=== PATIENT | female | born 2000 | race Caucasian/White ===

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

== ENCOUNTER 2022-07-10 07:16 | Emergency (ER) | payer MEDICAID ==
[~2022-07-10] VITALS: Ht 175.3 cm; Wt 131.8 kg
[~2022-07-10 07:16] MED LIST changes: -AMOX500C2 PO
[2022-07-10 07:25] VITALS: BP 146/80
== END 2022-07-10 09:31 | disposition home or self-care (01) ==
LOC: ER 07:16
DX: M25.561 Pain in right knee (principal); Z79.899 Other long term (current) drug therapy
CPT/HCPCS: 73564; 99283

== ENCOUNTER 2023-01-06 14:03 | Emergency (ER) | payer MEDICAID ==
[~2023-01-06] VITALS: Ht 175.3 cm; Wt 162.9 kg
[2023-01-06] MEDS ORDERED: TRIA15CR61 TOP (14:54)
[2023-01-06 15:14] VITALS: BP 143/74; PULSE 89; RESP 19; TEMP 98.9; O2SAT 93
--- NOTE | 2023-01-06 15:41 | NUR ---
I have reviewed and agree with all interventions, assessments performed and documented by [employer]
== END 2023-01-06 15:16 | disposition home or self-care (01) ==
LOC: ER 14:04
DX: R21 Rash and other nonspecific skin eruption (principal); L29.9 Pruritus, unspecified; Z79.899 Other long term (current) drug therapy
CPT/HCPCS: 99283

== ENCOUNTER 2025-01-09 05:22 | Emergency (ER) | payer MEDICAID ==
[~2025-01-09] VITALS: Ht 175.3 cm; Wt 145.4 kg
[~2025-01-09 05:22] MED LIST changes: -IBUP-1985 PO; +IBUP600T52 PO
[2025-01-09 05:27] VITALS: TEMP 98.6
--- NOTE | 2025-01-09 05:33 | Physician Documentation ---
History of Present Illness ~ Chief Complaint: Headache Stated Complaint: HEADACHE/SHARP PAINS Time Seen by MD: 05:32 Primary Medical Doctor: [facility] HPI Patient presented to the emergency room for evaluation headache that has been going on for several months however that has gotten worse. Patient has also developed a stutter over the past few months. Medication Reconciliation Allergies: Coded Allergies: No Known Allergies (Unverified , 07/20/09) Scheduled Ibuprofen (Ibuprofen), 1 TAB PO Q8H Selenium Sulfide (Selsun Blue), 1 APPLIC TP DAILY Past Medical History Past Medical History: No Pertinent History Past Surgical History: noncontributory Alcohol Use: None Drug Use: none Lives with: Family Lives In: Home Occupation: child Review of Systems ROS All review of systems negative except as per HPI Physical Exam Vital Signs: Temperature: 98.6, Source: Oral, Heart Rate: 82, Respiratory Rate: 18, BP: 140/90, Pulse Oximetry: 97, Weight: 145.450 Oxygen Flow Rate: 0 Physical Exam General: Patient is awake, alert, oriented x4 in no acute distress. Anxious Head: Normocephalic and atraumatic. Eyes: Conjunctival normal. EOMI. PERRL. ENT: Mucous membranes moist. Neck: Supple, trachea is midline. No meningismus Chest: Clear to auscultation bilaterally without rales, rhonchi, or wheezes. There is no accessory muscle use or retractions. Cardiac: RRR without murmurs, gallops, or rubs. Abd: Soft, nondistended, nontender, with normoactive bowel sounds. No guarding, rebound, or rigidity. Progress Results/Orders Results/Orders Orders - MARCELL LENTZ MD Ct Head (01/09/25 05:59) Completed Orders - MARCELL LENTZ MD Ct Head (01/09/25 05:59) Ibuprofen Tablet (Motrin Tablet) (01/09/25 05:40) Acetaminophen 325mg Tablet (Tylenol Tabl (01/09/25 05:40) Metoclopramide Tablet (Reglan Tablet) (01/09/25 05:40) Vital Signs 01/09/25 01/09/25 01/09/25 01/09/25 06:46 06:48 08:12 09:00 Pulse 74 77 92 Resp 16 16 16 16 B/P (MAP) 128/75 (92) 110/86 (94) 111/92 (98) Pulse Ox 98 96 96 O2 Flow Rate 0 0 0 01/09/25 10:11 Pulse 62 Resp 16 B/P (MAP) 132/90 Pulse Ox 99 Laboratory Tests Test 01/09/25 07:55 White Blood Count 9.6 Red Blood Count 4.80 Hemoglobin 13.0 Hematocrit 39.1 Mean Corpuscular Volume 81.6 Mean Corpuscular Hemoglobin 27.1 Mean Corpuscular Hemoglobin Concent 33.2 Red Cell Distribution Width 14.9 H Platelet Count 366 Mean Platelet Volume 8.7 Neutrophils (%) (Auto) 62.1 Lymphocytes (%) (Auto) 30.8 Monocytes (%) (Auto) 4.6 Eosinophils (%) (Auto) 1.6 Basophils (%) (Auto) 0.9 Neutrophils # (Auto) 6.0 Lymphocytes # (Auto) 3.0 Monocytes # (Auto) 0.4 Eosinophils # (Auto) 0.2 Basophils # (Auto) 0.1 CBC Comment Erythrocyte Sedimentation Rate 25 H Sodium Level 140 Potassium Level 4.0 Chloride Level 106 Carbon Dioxide Level 24.9 Anion Gap 9 Blood Urea Nitrogen 16 Creatinine 0.63 Estimated GFR/1.73 m2 > 90 BUN/Creatinine Ratio 25.4 H Glucose Level 106 H Calcium Level 8.6 C-Reactive Protein 0.95 H Albumin 3.7 Chemistry Comments Medical Decision Making Additional information obtaine: N/A Findings NA Differential Dx:Considerations: Include: VIRAMONTES-Cluster, VIRAMONTES-Migraine, VIRAMONTES-Muscular contraction, Temporal arteritis Additional Comment Took over care of this patient from previous ED physician. This is a 24-year-old female presenting with a left-sided headache. CT noncontrast of the head was negative. Patient continued to complain of pain after initially being medicated with ibuprofen and Tylenol as well as oral Reglan. I did order a CTA of the head and neck to rule out any vascular pathology and this was negative as well. I did further medicate the patient with 1 L of IV normal saline, 10 mg of IV Reglan and the patient reported improvement in her symptoms. I do not have a clear explanation for this headache as I informed the patient however it is possible the patient is having a cluster of versus tension versus migraine headache versus an infectious etiology. Lab workup did indicate elevated CRP and ESR which are nonspecific but 0.2 potential inflammatory process. I advised the patient on rest, fluids and treating this symptomatically over the next couple of days. I also advised close follow up with her primary care physician in the next 2-3 days. She was also advised to return immediately to the emergency department should her symptoms worsen. Patient expressed full understanding of the assessment and plan and was amenable. Mother was present as well and she expressed full understanding as well. Departure Disposition: HOME / SELF CARE / HOMELESS Impression: Primary Impression: Headache Condition: Improved Discharge Instructions: Headache Additional Instructions: Please drink plenty of fluids and get plenty of rest over the next couple of days. You may treat this symptomatically with [id number] ibuprofen or Tylenol. Monitor symptoms for improvement and resolution. Follow up with PCP in the next 2-3 days. Return to the ED with any acutely worsening symptoms. Referrals: NO PRIMARY CARE PROVIDER (PCP) Signature Scribe Signature: 1 Attestation: The note accurately reflects work and decisions made by me.Marcell Lentz MD 01/13/25 23:06 1 MARCELL LENTZ MD Jan 09, 2025 05:33 AKOSUA AGRAWAL MD Jan 09, 2025 10:01
[2025-01-09] MEDS: ibuprofen tablet 400 MG TABLET PO ONE (05:44)
--- NOTE | 2025-01-09 06:29 | RADIOLOGY REPORT ---
EXAM: CT CT HEAD INDICATION: headache. TECHNIQUE: CT of the head without intravenous contrast. Coronal and sagittal reformatted images are submitted. Radiation Dose : 1. Head: CT Dose: CTDI volume is 65.1 mGy. Dose-length product is 1191.9 mGy*cm The dose indicators for CT are the volume Computed Tomography (CT) Dose Index (CTDIvol) and the Dose Length Product (DLP), and are measured in units of mGy and mGy-cm, respectively. These indicators are not patient dose, but values generated from the CT scanner acquisition factors. The report includes radiation exposure data for exposures received during this examination. All CT scans at this medical facility are performed using dose modulation techniques as appropriate to a performed exam including the following: Automated exposure control was utilized; adjustment of the MA and/or KV according to patient size; and use of iterative reconstruction technique. COMPARISON: None FINDINGS: There is no evidence of acute intracranial hemorrhage, extra-axial collection, mass effect, midline shift, herniation or hydrocephalus. The ventricles, sulci and cisterns are age appropriate. The fisher-white differentiation is intact. Mastoid air cells are clear. There is mucosal thickening in the left maxillary sinus. No depressed calvarial fracture. The surrounding soft tissues are unremarkable. IMPRESSION: 1. No evidence of acute intracranial abnormality.
[2025-01-09] MEDS: metoclopramide 5 mg/ml inj IV ONE (07:56)
[2025-01-09] MEDS: normal saline 1000ml 1,000 ML IV ONE (07:56)
[2025-01-09 08:10] LABS: MEAN PLATELET VOLUME 8.7 FL (7.4-10.4); RED CELL DISTRIBUTION WIDTH 14.9 % (11.5-14.5)
[2025-01-09 08:17] LABS: CREATININE 0.63 MG/DL (0.40-0.90); TOTAL CARBON DIOXIDE 24.9 MMOL/L (24-32); eCRCL 145 ML/MIN; eGFR > 90 ML/MIN
--- NOTE | 2025-01-09 09:28 | RADIOLOGY REPORT ---
CLINICAL HISTORY: left sided sharp headache TECHNIQUE: CT angiogram of the head and neck was performed without and with intravenous contrast. 3D MIP reconstructed images were created and archived on the PACS system. This exam was performed according to our departmental dose optimization program. Up-to-date CT equipment and radiation dose reduction techniques are utilized as appropriate. CTDI 18 DLP 697 COMPARISON: CT CT HEAD on DOS: 01/09/25 FINDINGS: CTA NECK: The common carotid, internal carotid, and vertebral arteries are patent with no evidence for high grade narrowing, occlusion, and dissection. There is no significant narrowing at the carotid bulbs per NASCET criteria. CTA HEAD: The anterior and posterior intracranial circulations are intact with no evidence for high grade narrowing, occlusion, or aneurysm. IMPRESSION: No acute CTA abnormality of the major head and neck arterial vasculature.
[2025-01-09 10:11] VITALS: BP 132/90; PULSE 62; RESP 16; O2SAT 99
== END 2025-01-09 10:13 | disposition home or self-care (01) ==
LOC: ER 05:23
DX: R51.9 Headache, unspecified (principal); Z79.899 Other long term (current) drug therapy
CPT/HCPCS: 36415; 70450; 70496; 70498; 80048; 85025; 85651; 86140; 96361; 96374; 99285; J2765; J7030; Q9967